=== PATIENT | male | born 1990 | race Caucasian/White ===

== ENCOUNTER → 2024-08-20 13:00 | Outpatient (BNVA) | payer MEDICAID, SELFPAY | PROVIDERS: PCP Family Medicine; Visit Provider Family Medicine | DX: E55.9 Vitamin D deficiency, unspecified (principal); F90.9 Attention-deficit hyperactivity disorder, unspecified type; I37.0 Nonrheumatic pulmonary valve stenosis; M54.50 Low back pain, unspecified | CPT/HCPCS: 80053; 80061; 82306; 84443; 85025 ==

== ENCOUNTER 2024-10-30 14:10 | Outpatient (CLI) | payer MEDICAID, SELFPAY ==
--- NOTE | 2024-10-30 14:15 | XRR_ITS ---
PROCEDURE INFORMATION: Exam: XR Lumbosacral Spine Exam date and time: 10/30/2024 2:29 PM Age: 34 years old Clinical indication: Patient HX: Worsening low back pain above pelvis and general neck pain, PT has been diagnosed with scoliosis 5 yrs ago; Additional info: M54.50 - low back pain, unspecified TECHNIQUE: Imaging protocol: Radiologic exam of the lumbosacral spine. Views: 2 or 3 views. COMPARISON: No relevant prior studies available. FINDINGS: Bones/joints: No fracture or dislocation. No significant spurring. No lytic or sclerotic bone lesion. The paravertebral soft tissues are normal. Soft tissues: See Bones/joints finding. XR/XR lumbar spine 2-3V* [id number] IMPRESSION: No significant abnormality.
== END 2024-10-30 14:11 | disposition home or self-care (01) ==
LOC: RAD 14:11
PROVIDERS: PCP Family Medicine; Visit Provider Family Medicine
DX: M54.50 Low back pain, unspecified (principal)
CPT/HCPCS: 72100